=== PATIENT | female | born 1940 | race Caucasian/White ===

== ENCOUNTER 2019-09-17 09:04 | Inpatient (IN) | payer MEDICARE, MEDICAID ==
--- NOTE | 2019-09-17 11:10 | EDM.PDOC ---
ED HPI GENERAL MEDICAL PROBLEM - General Chief Complaint: Lower Extremity Injury/Pain Stated Complaint: Fall. R Hip Pain Time Seen by Provider: 09/17/19 09:20 Source of Information: Reports: Patient History Limitations: Reports: No Limitations - History of Present Illness INITIAL COMMENTS - FREE TEXT/NARRATIVE: Patient presents to ER with complaints of right hip and knee pain. Did fall at home yesterday, called 911 to home, assisted her up and patient refused transfer at that time. States at 7 pm last night started having pain in her right knee and now has not been able to tolerate it. She again called 911 this am. Patient left the prison AMA about a month ago. "they weren't doing anything for me and didn't get much more help than I get at home". She relates she can transfer from lift chair to w/c and to commode and her helps with the meals and emptying the commode. Today, unable to transfer at all. Denies chest pain, shortness of breath or abdominal pain. Did have injection to left knee on Saturday and relates that is feeling much better. Onset: Gradual Duration: Hour(s):, Getting Worse Location: Reports: Lower Extremity, Left Quality: Reports: Throbbing Severity: Severe Improves with: Reports: Rest Worsens with: Reports: Movement Associated Symptoms: Reports: No Other Symptoms Treatments ENVIRONMENTAL PROGRAM MANAGER: Reports: IV/IO, Other Medication(s) Other Treatments ENVIRONMENTAL PROGRAM MANAGER: fentanyl 50 mcg ivp, zofran 4mg ivp - Related Data Allergies Allergy/AdvReac Type Severity Reaction Status Date / Time allopurinol Allergy Muscle Verified 09/17/19 09:48 Weakness azithromycin [From Zithromax] Allergy Nausea Verified 09/17/19 09:48 ciprofloxacin [From Cipro] Allergy Headache Verified 09/17/19 09:48 doxycycline Allergy Shortness Verified 09/17/19 09:48 of Breath guaifenesin Allergy Itching Verified 09/17/19 09:48 metolazone Allergy Hives Verified 09/17/19 09:48 Penicillins Allergy Cannot Verified 09/17/19 09:48 Remember prednisone Allergy Hives Verified 09/17/19 09:48 solifenacin [From Vesicare] Allergy Rash Verified 09/17/19 09:48 spironolactone Allergy Tachycardia Verified 09/17/19 09:48 [From Aldactone] Sulfa (Sulfonamide Allergy Hives Verified 09/17/19 09:48 Antibiotics) tolterodine [From Detrol] Allergy Cannot Verified 09/17/19 09:48 Remember Home Meds: Home Meds Albuterol [Ventolin HFA] 1 puff .XX Q4H PRN 09/17/19 [History] Bumetanide 1 mg PO DAILY 09/17/19 [History] Cephalexin [Keflex] 500 mg PO TID 09/17/19 [History] Cyanocobalamin/Folic Acid [Vitamin D86-Jgkft Acid] 1 each PO DAILY 09/17/19 [ History] Past Medical History Cardiovascular History: Reports: Heart Failure, Hypertension Respiratory History: Reports: Asthma Musculoskeletal History: Reports: Arthritis, Other (See Below) Other Musculoskeletal History: chronic knee and hip pain Social & Family History - Tobacco Use Smoking Status *Q: Never Smoker Review of Systems - Review of Systems Review Of Systems: See Below Constitutional: Reports: Weakness. Denies: Chills, Fever Eyes: Reports: No Symptoms Ears: Denies: Dizziness Nose: Reports: No Symptoms Mouth/Throat: Reports: No Symptoms Respiratory: Denies: Shortness of Breath, Cough Cardiovascular: Denies: Chest Pain, Palpitations GI/Abdominal: Denies: Abdominal Pain, Nausea, Vomiting Genitourinary: Reports: No Symptoms Musculoskeletal: Reports: Leg Pain, Joint Pain Skin: Reports: Erythema (in legs) Neurological: Reports: Weakness ED EXAM, GENERAL - Physical Exam Exam: See Below Exam Limited By: No Limitations General Appearance: Alert, WD/WN, No Apparent Distress Ears: Normal External Exam, Normal TMs Nose: Normal Inspection, Normal Mucosa, No Blood Throat/Mouth: Normal Inspection, Normal Oropharynx Head: Normocephalic Neck: Normal Inspection, Supple, Non-Tender Respiratory/Chest: No Respiratory Distress, Lungs Clear, Normal Breath Sounds Cardiovascular: Regular Rate, Rhythm GI/Abdominal: Normal Bowel Sounds, Soft, Hernia (left upper abdomen) Extremities: Increased Warmth, Redness (right lower extremity; also has abrasion /avulsion to right great toe. edema 2-3+ noted. Redness noted to creases of legs) Neurological: Alert, Oriented Skin Exam: Warm, Dry Course - Vital Signs Last Recorded V/S: Last Vital Signs Temp 97.5 F 09/17/19 09:04 Pulse 96 09/17/19 09:04 Resp 20 09/17/19 09:04 BP 111/64 09/17/19 09:04 Pulse Ox 96 09/17/19 09:04 - Orders/Labs/Meds Orders: Active Orders 24 hr Category Date Time Status Hip Min 2V or 3V w Pelvis Rt [CR] Stat Exams 09/17/19 09:09 Taken Knee 1V or 2V Rt [CR] Stat Exams 09/17/19 09:09 Taken - Re-Assessments/Exams Free Text/Narrative Re-Assessment/Exam: 09/17/19 1000 Patient's xrays are negative. Did discuss possible injection to knee and discharge plan. Patient feels she could do this at home. Transferred with 2 to wheelchair, did not do well, minimal weight bearing. contacted about ability to care for her at home. He states he is no longer able to do this. Did not feel she should have checked out of the prison, does very little for herself. Refused therapy when at the home. Patient aware of of admission here with plan to transfer to [facility] for more care and strengthening. Patient is unhappy about this but does understand. Departure - Departure Time of Disposition: 11:07 Disposition: Admitted As Inpatient 66 Condition: Fair Clinical Impression: Failure to thrive Right knee pain Qualifiers: Chronicity: acute Qualified Code(s): M25.561 - Pain in right knee - Discharge Information *PRESCRIPTION DRUG MONITORING PROGRAM REVIEWED*: No *COPY OF PRESCRIPTION DRUG MONITORING REPORT IN PATIENT FAMILIA: No - Problem List & Annotations (1) Failure to thrive SNOMED Code(s): 05654654 Code(s): YGK4881 - Status: Acute Priority: High Current Visit: No (2) Right knee pain SNOMED Code(s): 89208859 Code(s): M25.561 - PAIN IN RIGHT KNEE Status: Acute Priority: High Current Visit: No Qualifiers: Chronicity: acute Qualified Code(s): M25.561 - Pain in right knee - Problem List Review Problem List Initiated/Reviewed/Updated: Yes - My Orders Last 24 Hours: My Active Orders 09/17/19 09:09 Hip Min 2V or 3V w Pelvis Rt [CR] Stat Knee 1V or 2V Rt [CR] Stat - Assessment/Plan Admission H&P: Please use this note as an admission H&P Last 24 Hours: My Active Orders 09/17/19 09:09 Hip Min 2V or 3V w Pelvis Rt [CR] Stat Knee 1V or 2V Rt [CR] Stat Assessment:: Failure to thrive/vulnerable adult Right Knee Pain Plan: Patient family admits unable to care for patient at home. Had just checked self out of the prison a month ago and has not been doing well at home. Will admit for physical therapy, social service consult for prison patient. Patient unable to transfer to wheelchair well this am which she states she can typically do on her own.
[2019-09-17] MEDS ORDERED: Ondansetron 4 MG Tab.DIS PO PRN (12:44)
[2019-09-17] MEDS ORDERED: Magnesium Hydroxide 400 MG/5 ML Susp 30 ML Cup PO PRN (12:44)
[2019-09-17] MEDS ORDERED: Sodium Chloride 0.9% 10 ML Syringe FLUSH PRN (12:44)
[2019-09-17] MEDS ORDERED: Ondansetron 4 MG/2 ML SDV IV PRN (12:44)
[2019-09-17] MEDS ORDERED: Albuterol 8 GM Inhaler INH PRN (12:44)
[2019-09-17] MEDS: Enoxaparin 40 MG/0.4 ML Syringe SUBCUT SCH (14:16)
[2019-09-17] MEDS: Cephalexin 500 MG Cap PO SCH ×2 (14:17→19:28)
[2019-09-17] MEDS: traMADol 50 MG Tab PO PRN (16:05)
[2019-09-17] MEDS ORDERED: fentaNYL 100 MCG/2 ML SDV IVPUSH PRN (16:46)
[2019-09-17] MEDS ORDERED: Menthol/Zinc Oxide Ointment 113 GM Tube TOP ONE (17:31)
[2019-09-17] MEDS ORDERED: Menthol/Zinc Oxide Ointment 113 GM Tube TOP PRN (17:48)
[2019-09-17] MEDS: Oxyquinoline/Emollient 0.3% Oint 1 OZ Canister TOP PRN (19:32)
[2019-09-18] MEDS: Vitamin B Complex Cap PO SCH (08:42)
[2019-09-18] MEDS: Cephalexin 500 MG Cap PO SCH ×3 (08:42→20:27)
[2019-09-18] MEDS: Bumetanide 1 MG Tab PO SCH (08:42)
[2019-09-18] MEDS: Enoxaparin 40 MG/0.4 ML Syringe SUBCUT SCH (13:26)
[2019-09-18] MEDS: traMADol 50 MG Tab PO PRN ×2 (14:14→20:50)
--- NOTE | 2019-09-18 19:28 | PCM.PN ---
- General Info Date of Service: 09/18/19 Admission Dx/Problem (Free Text): Failure to Thrive Weakness Right Knee Pain Functional Status: Reports: Pain Controlled, Tolerating Diet. Denies: Ambulating - Review of Systems General: Reports: Weakness, Fatigue HEENT: Reports: No Symptoms Pulmonary: Denies: Shortness of Breath, Cough Cardiovascular: Reports: Edema. Denies: Chest Pain, Lightheadedness Gastrointestinal: Denies: Abdominal Pain, Nausea, Vomiting Genitourinary: Reports: Incontinence Musculoskeletal: Reports: Joint Pain Skin: Reports: Other ("itchy legs") Neurological: Reports: Weakness - Patient Data Vitals - Most Recent: Last Vital Signs Temp 97.6 F 09/18/19 16:00 Pulse 87 09/18/19 16:00 Resp 18 09/18/19 16:00 BP 107/69 09/18/19 16:00 Pulse Ox 91 L 09/18/19 16:00 Weight - Most Recent: 277 lb Lab Results Last 24 Hours: Laboratory Results - last 24 hr 09/17/19 Range/Units 16:00 Urine Color Yellow (YELLOW) Urine Appearance Clear (CLEAR) Urine pH 5.0 (4.5-8.0) Ur Specific [place] 1.010 (1.003-1.020) Urine Protein Negative (NEGATIVE) mg/dL Urine Glucose (UA) Negative (NEGATIVE) mg/dL Urine Ketones Negative (NEGATIVE) mg/dL Urine Occult Blood Negative (NEGATIVE) Urine Nitrite Negative (NEGATIVE) Urine Bilirubin Negative (NEGATIVE) Urine Urobilinogen 1.0 (0.2-1.0) EU/dL Ur Leukocyte Esterase Small H (NEGATIVE) Urine RBC Not seen (0-5) /HPF Urine WBC 10-20 H (0-5) /HPF Ur Epithelial Cells Few H (NOT SEEN) /HPF Urine Bacteria Occasional H (NOT SEEN) /HPF Med Orders - Current: Current Medications Albuterol (Ventolin Hfa) 0 gm INH Q4H PRN PRN Reason: Respiratory Depression Bumetanide (Bumex) 1 mg PO DAILY [facility] Last Admin: 09/18/19 08:42 Dose: 1 mg Calamine/Phenol (Calmoseptine) 1 gm TOP QID PRN PRN Reason: Wound Care Cephalexin (Keflex) 500 mg PO TID [facility] Last Admin: 09/18/19 13:28 Dose: 500 mg Enoxaparin Sodium (Lovenox) 40 mg SUBCUT Q24H [facility] Last Admin: 09/18/19 13:26 Dose: 40 mg Fentanyl (Sublimaze) 25 mcg IVPUSH Q4H PRN PRN Reason: Pain Last Admin: 09/18/19 13:26 Dose: 25 mcg Magnesium Hydroxide (Milk Of Magnesia) 30 ml PO Q12H PRN PRN Reason: Constipation Ondansetron HCl (Zofran Odt) 4 mg PO Q4H PRN PRN Reason: nausea, able to take PO Ondansetron HCl (Zofran) 4 mg IV Q4H PRN PRN Reason: Nausea/Vomiting Oxyquinoline Sulfate (Bag [place] Oint) 1 oz TOP ASDIRECTED PRN PRN Reason: Wound Care Last Admin: 09/17/19 19:32 Dose: 1 applic Sodium Chloride (Saline Flush) 10 ml FLUSH ASDIRECTED PRN PRN Reason: Keep Vein Open Tramadol HCl (Ultram) 50 mg PO Q6H PRN PRN Reason: Pain Last Admin: 09/18/19 14:14 Dose: 50 mg Vitamin B Complex (Vitamin B Complex) 1 each PO DAILY [facility] Last Admin: 09/18/19 08:42 Dose: 1 each Discontinued Medications Calamine/Phenol (Calmoseptine) Confirm Administered Dose 113 gm TOP .STK-MED ONE Stop: 09/17/19 17:32 Last Admin: 09/17/19 17:55 Dose: Not Given - Exam General: Alert, Oriented HEENT: Mucous Membr. Moist/[place] Neck: Supple Lungs: Clear to Auscultation, Normal Respiratory Effort Cardiovascular: Regular Rate, Regular Rhythm GI/Abdominal Exam: Normal Bowel Sounds, Soft, Non-Tender Extremities: Limited Range of Motion, Other (does not weight bear much at all) Skin: Other (Patient has redness, moisture and drainage to all folds of legs.) Neurological: No New Focal Deficit - Problem List & Annotations (1) Failure to thrive SNOMED Code(s): 15013737 Code(s): [id number] - Status: Acute Priority: High Current Visit: No (2) Right knee pain SNOMED Code(s): 35222843 Code(s): M25.561 - PAIN IN RIGHT KNEE Status: Acute Priority: High Current Visit: No Qualifiers: Chronicity: acute Qualified Code(s): M25.561 - Pain in right knee - Problem List Review Problem List Initiated/Reviewed/Updated: Yes - My Orders Last 24 Hours: My Active Orders 09/18/19 08:00 Bumetanide [Bumex] 1 mg PO DAILY Vitamin B Complex 1 each PO DAILY - Assessment Assessment:: Weakness Failure to Thrive Right Knee Pain - Plan Plan:: Patient resting comfortably in bed. Does not transfer well, nursing using the ez-stand. She continues to complain of right knee pain, "is sore". She denies shortness of breath, chest pain, or abdominal pain. Has been incontinent of urine. Appetite is good. Patient will receive PT due to inability to care for self. Requires multiple staff members to transfer/reposition. Will plan for custodial placement when able.
[2019-09-18] MEDS: Oxyquinoline/Emollient 0.3% Oint 1 OZ Canister TOP PRN (20:46)
[2019-09-19] MEDS: Albuterol/Ipratropium 3.0-0.5 MG/3 ML Neb Soln NEB PRN ×2 (01:04→20:00)
[2019-09-19] MEDS: traMADol 50 MG Tab PO PRN ×2 (08:14→17:22)
[2019-09-19] MEDS: Bumetanide 1 MG Tab PO SCH (08:14)
[2019-09-19] MEDS: Cephalexin 500 MG Cap PO SCH ×3 (08:14→19:47)
[2019-09-19] MEDS: Vitamin B Complex Cap PO SCH (08:15)
[2019-09-19] MEDS: Enoxaparin 40 MG/0.4 ML Syringe SUBCUT SCH (12:44)
--- NOTE | 2019-09-19 15:35 | PCM.PN ---
- General Info Date of Service: 09/19/19 Functional Status: Reports: Tolerating Diet - Review of Systems General: Reports: Weakness (general) HEENT: Reports: No Symptoms Pulmonary: Reports: No Symptoms Cardiovascular: Reports: No Symptoms Gastrointestinal: Reports: No Symptoms Genitourinary: Reports: No Symptoms Musculoskeletal: Reports: Leg Pain (RLE pain chronic for years unchanged) Skin: Reports: Other (coccyx wound, right greater toe wound ) Neurological: Reports: No Symptoms Psychiatric: Reports: Depression - Patient Data Vitals - Most Recent: Last Vital Signs Temp 98.9 F 09/19/19 00:00 Pulse 88 09/19/19 00:00 Resp 18 09/19/19 00:00 BP 114/51 L 09/19/19 00:00 Pulse Ox 95 09/19/19 00:00 Weight - Most Recent: 277 lb Lab Results Last 24 Hours: Laboratory Results - last 24 hr 09/17/19 09/19/19 09/19/19 Range/Units 16:00 07:20 07:20 WBC 5.6 (5.0-10.0) 10^3/uL RBC 3.61 L (4.00-5.50) 10^6/uL Hgb 11.1 L (12.0-16.0) g/dL Hct 35.4 L (37.0-47.0) % MCV 98.1 H (82.0-94.0) fL MCH 30.7 (27.0-32.0) pg MCHC 31.4 L (33.0-38.0) g/dL RDW Coeff of Pratik 14.5 (11.0-15.0) % Plt Count 215 (150-400) 10^3/uL Neut % (Auto) 52.3 (35-85) % Lymph % (Auto) 29.1 (10-55) % [place] % (Auto) 10.6 (0-16) % Eos % (Auto) 7.6 H (0-5) % Baso % (Auto) 0.4 (0-3) % Neut # (Auto) 2.95 (1.80-7.00) 10^3/uL Lymph # (Auto) 1.64 (1.00-4.80) 10^3/uL [place] # (Auto) 0.60 (0.00-0.80) 10^3/uL Eos # (Auto) 0.43 (0.00-0.45) 10^3/uL Baso # (Auto) 0.02 10^3/uL Sodium 140 (136-145) mEq/L Potassium 3.8 (3.5-5.0) mEq/L Chloride 105 (98-106) mEq/L Carbon Dioxide 28 (21-32) mmol/L BUN 21 H (7-18) mg/dL Creatinine 1.0 (0.6-1.0) mg/dL Est Cr Clr Drug Dosing 41.05 mL/min Estimated GFR (MDRD) 53 L (>=60) mL/min Glucose 79 (75-99) mg/dL Calcium 8.0 L (8.4-10.1) mg/dL Urine Color Yellow (YELLOW) Urine Appearance Clear (CLEAR) Urine pH 5.0 (4.5-8.0) Ur Specific [place] 1.010 (1.003-1.020) Urine Protein Negative (NEGATIVE) mg/dL Urine Glucose (UA) Negative (NEGATIVE) mg/dL Urine Ketones Negative (NEGATIVE) mg/dL Urine Occult Blood Negative (NEGATIVE) Urine Nitrite Negative (NEGATIVE) Urine Bilirubin Negative (NEGATIVE) Urine Urobilinogen 1.0 (0.2-1.0) EU/dL Ur Leukocyte Esterase Small H (NEGATIVE) Urine RBC Not seen (0-5) /HPF Urine WBC 10-20 H (0-5) /HPF Ur Epithelial Cells Few H (NOT SEEN) /HPF Urine Bacteria Occasional H (NOT SEEN) /HPF Med Orders - Current: Current Medications Albuterol (Ventolin Hfa) 0 gm INH Q4H PRN PRN Reason: Respiratory Depression Albuterol/Ipratropium (Duoneb 3.0-0.5 Mg/3 Ml) 3 ml NEB TIDRT PRN PRN Reason: Dyspnea Last Admin: 09/19/19 01:04 Dose: 3 ml Bumetanide (Bumex) 1 mg PO DAILY [facility] Last Admin: 09/19/19 08:14 Dose: 1 mg Calamine/Phenol (Calmoseptine) 1 gm TOP QID PRN PRN Reason: Wound Care Cephalexin (Keflex) 500 mg PO TID [facility] Last Admin: 09/19/19 13:44 Dose: 500 mg Enoxaparin Sodium (Lovenox) 40 mg SUBCUT Q24H [facility] Last Admin: 09/19/19 12:44 Dose: 40 mg Fentanyl (Sublimaze) 25 mcg IVPUSH Q4H PRN PRN Reason: Pain Last Admin: 09/18/19 13:26 Dose: 25 mcg Magnesium Hydroxide (Milk Of Magnesia) 30 ml PO Q12H PRN PRN Reason: Constipation Ondansetron HCl (Zofran Odt) 4 mg PO Q4H PRN PRN Reason: nausea, able to take PO Ondansetron HCl (Zofran) 4 mg IV Q4H PRN PRN Reason: Nausea/Vomiting Oxyquinoline Sulfate (Bag [place] Oint) 1 oz TOP ASDIRECTED PRN PRN Reason: Wound Care Last Admin: 09/18/19 20:46 Dose: 1 applic Sodium Chloride (Saline Flush) 10 ml FLUSH ASDIRECTED PRN PRN Reason: Keep Vein Open Tramadol HCl (Ultram) 50 mg PO Q6H PRN PRN Reason: Pain Last Admin: 09/19/19 08:14 Dose: 50 mg Vitamin B Complex (Vitamin B Complex) 1 each PO DAILY [facility] Last Admin: 09/19/19 08:15 Dose: 1 each Discontinued Medications Calamine/Phenol (Calmoseptine) Confirm Administered Dose 113 gm TOP .STDropost.it-MED ONE Stop: 09/17/19 17:32 Last Admin: 09/17/19 17:55 Dose: Not Given - Exam General: Alert, Oriented, Cooperative, No Acute Distress Lungs: Clear to Auscultation, Normal Respiratory Effort Cardiovascular: Regular Rate, Regular Rhythm GI/Abdominal Exam: Tender (diffuse superficially, per patient due to lovenox injections), Other (obese) (Female) Exam: Deferred Back Exam: Other (eccymosis) Extremities: Other (tenderness RLE chronic. wound right greater toe.) Peripheral Pulses: 2+: Radial (L), Radial (R), Posterior Tibial (L), Posterior Tibial (R) Skin: Warm, Dry, Ecchymosis (back) Psy/Mental Status: Alert, Depressed, Other (failure to thrive. ) - Problem List Review Problem List Initiated/Reviewed/Updated: Yes - My Orders Last 24 Hours: My Active Orders 09/19/19 00:27 RT Aerosol Therapy [RC] ASDIRECTED Albuterol/Ipratropium [DuoNeb 3.0-0.5 MG/3 ML] 3 ml NEB TIDRT PRN 09/20/19 05:00 BASIC METABOLIC PANEL,BMP [CHEM] DAILY CBC WITH AUTO DIFF [HEME] DAILY 09/21/19 05:00 BASIC METABOLIC PANEL,BMP [CHEM] DAILY CBC WITH AUTO DIFF [HEME] DAILY - Assessment Assessment:: Weakness Failure to Thrive Right Knee Pain - Plan Plan:: Patient resting comfortably in bed. Does not transfer well, nursing using the ez-stand. She continues to complain of right knee pain, "is sore". She denies shortness of breath, chest pain, or abdominal pain. Has been incontinent of urine. Appetite is good. Patient will receive PT due to inability to care for self. Requires multiple staff members to transfer/reposition. Will plan for [facility] placement when able. 09/19/19 0800 Patient is obese female that is not able to transfer on her own. She reports multiple person assist for movement. She has continued chronic RLE pain for years. She reports she generally is sore all over, but reports that is not new. She reports abdominal murphy just from lovenox injections. Bun yesterday 27, CR 1.1. Today BUN is 21, CR 1.0. Will continue admit with the plan to get PT and placement to [facility] or other facility to care for her. She can not go home as it requires multiple people to care for ADLs and mobility to transfer. Patient has no thrive due to lack of mobility and transfer ability.
[2019-09-20] MEDS: Albuterol/Ipratropium 3.0-0.5 MG/3 ML Neb Soln NEB PRN ×3 (05:13→23:16)
[2019-09-20] MEDS: Bumetanide 1 MG Tab PO SCH (08:18)
[2019-09-20] MEDS: traMADol 50 MG Tab PO PRN (08:18)
[2019-09-20] MEDS: Cephalexin 500 MG Cap PO SCH ×3 (08:19→19:39)
[2019-09-20] MEDS: Vitamin B Complex Cap PO SCH (08:21)
[2019-09-20] MEDS: Polyethylene Glycol 3350 Powder 17 GM Packet PO SCH (08:51)
[2019-09-20] MEDS: Enoxaparin 40 MG/0.4 ML Syringe SUBCUT SCH (12:30)
--- NOTE | 2019-09-20 12:47 | PCM.PN ---
- General Info Date of Service: 09/20/19 Functional Status: Reports: Pain Controlled (generalixed body pain) - Review of Systems General: Reports: Weakness (general) HEENT: Reports: No Symptoms Pulmonary: Reports: No Symptoms. Denies: Shortness of Breath Cardiovascular: Reports: No Symptoms. Denies: Chest Pain, Edema Gastrointestinal: Reports: No Symptoms. Denies: Abdominal Pain, Nausea, Vomiting Genitourinary: Reports: Incontinence Musculoskeletal: Reports: Other (RLE pain chronic. LUE pain, swelling bruising at lab site AC) Skin: Reports: Bruising (LEft Ac from Lbab per patient) Neurological: Reports: No Symptoms Psychiatric: Reports: No Symptoms - Patient Data Vitals - Most Recent: Last Vital Signs Temp 98.0 F 09/19/19 23:56 Pulse 70 09/19/19 23:56 Resp 18 09/19/19 23:56 BP 118/58 L 09/19/19 23:56 Pulse Ox 95 09/19/19 23:56 Weight - Most Recent: 277 lb Lab Results Last 24 Hours: Laboratory Results - last 24 hr 09/20/19 09/20/19 Range/Units 07:05 07:05 WBC 5.7 (5.0-10.0) 10^3/uL RBC 3.59 L (4.00-5.50) 10^6/uL Hgb 10.9 L (12.0-16.0) g/dL Hct 34.8 L (37.0-47.0) % MCV 96.9 H (82.0-94.0) fL MCH 30.4 (27.0-32.0) pg MCHC 31.3 L (33.0-38.0) g/dL RDW Coeff of Pratik 14.3 (11.0-15.0) % Plt Count 212 (150-400) 10^3/uL Neut % (Auto) 58.8 (35-85) % Lymph % (Auto) 23.6 (10-55) % [place] % (Auto) 11.9 (0-16) % Eos % (Auto) 5.4 H (0-5) % Baso % (Auto) 0.3 (0-3) % Neut # (Auto) 3.37 (1.80-7.00) 10^3/uL Lymph # (Auto) 1.35 (1.00-4.80) 10^3/uL [place] # (Auto) 0.68 (0.00-0.80) 10^3/uL Eos # (Auto) 0.31 (0.00-0.45) 10^3/uL Baso # (Auto) 0.02 10^3/uL Sodium 141 (136-145) mEq/L Potassium 3.6 (3.5-5.0) mEq/L Chloride 105 (98-106) mEq/L Carbon Dioxide 29 (21-32) mmol/L BUN 19 H (7-18) mg/dL Creatinine 1.1 H (0.6-1.0) mg/dL Est Cr Clr Drug Dosing 37.32 mL/min Estimated GFR (MDRD) 48 L (>=60) mL/min Glucose 101 H D (75-99) mg/dL Calcium 8.1 L (8.4-10.1) mg/dL Med Orders - Current: Current Medications Albuterol (Ventolin Hfa) 0 gm INH Q4H PRN PRN Reason: Respiratory Depression Albuterol/Ipratropium (Duoneb 3.0-0.5 Mg/3 Ml) 3 ml NEB TIDRT PRN PRN Reason: Dyspnea Last Admin: 09/20/19 05:13 Dose: 3 ml Bumetanide (Bumex) 1 mg PO DAILY [facility] Last Admin: 09/20/19 08:18 Dose: 1 mg Calamine/Phenol (Calmoseptine) 1 gm TOP QID PRN PRN Reason: Wound Care Cephalexin (Keflex) 500 mg PO TID [facility] Last Admin: 09/20/19 08:19 Dose: 500 mg Enoxaparin Sodium (Lovenox) 40 mg SUBCUT Q24H [facility] Last Admin: 09/20/19 12:30 Dose: 40 mg Fentanyl (Sublimaze) 25 mcg IVPUSH Q4H PRN PRN Reason: Pain Last Admin: 09/18/19 13:26 Dose: 25 mcg Magnesium Hydroxide (Milk Of Magnesia) 30 ml PO Q12H PRN PRN Reason: Constipation Ondansetron HCl (Zofran Odt) 4 mg PO Q4H PRN PRN Reason: nausea, able to take PO Ondansetron HCl (Zofran) 4 mg IV Q4H PRN PRN Reason: Nausea/Vomiting Oxyquinoline Sulfate (Bag [place] Oint) 1 oz TOP ASDIRECTED PRN PRN Reason: Wound Care Last Admin: 09/18/19 20:46 Dose: 1 applic Polyethylene Glycol (Miralax) 17 gm PO DAILY [facility] Last Admin: 09/20/19 08:51 Dose: 17 gm Sodium Chloride (Saline Flush) 10 ml FLUSH ASDIRECTED PRN PRN Reason: Keep Vein Open Tramadol HCl (Ultram) 50 mg PO Q6H PRN PRN Reason: Pain Last Admin: 09/20/19 08:18 Dose: 50 mg Vitamin B Complex (Vitamin B Complex) 1 each PO DAILY [facility] Last Admin: 09/20/19 08:21 Dose: Not Given Discontinued Medications Calamine/Phenol (Calmoseptine) Confirm Administered Dose 113 gm TOP .STK-MED ONE Stop: 09/17/19 17:32 Last Admin: 09/17/19 17:55 Dose: Not Given - Exam General: Alert, Oriented, Other (generally weak.) Lungs: Clear to Auscultation, Normal Respiratory Effort Cardiovascular: Regular Rate, Regular Rhythm Back Exam: Other (eccyhmosis) Extremities: Normal Capillary Refill, Arm Pain (Left AC lab site. no drainage, no heat, no evidence of infection.), Other (RLE pain chronic) Peripheral Pulses: 2+: Radial (L), Radial (R), Posterior Tibial (L), Posterior Tibial (R), Dorsalis Pedis (L), Dorsalis Pedis (R) Skin: Warm, Dry, Ecchymosis (back. Left AC) Neurological: No New Focal Deficit Psy/Mental Status: Alert, Normal Affect, Normal Mood - Problem List Review Problem List Initiated/Reviewed/Updated: Yes - My Orders Last 24 Hours: My Active Orders 09/20/19 08:45 Polyethylene Glycol 3350 [MiraLAX] 17 gm PO DAILY 09/21/19 05:00 BASIC METABOLIC PANEL,BMP [CHEM] DAILY CBC WITH AUTO DIFF [HEME] DAILY - Assessment Assessment:: Weakness Failure to Thrive Right Knee Pain - Plan Plan:: Patient resting comfortably in bed. Does not transfer well, nursing using the ez-stand. She continues to complain of right knee pain, "is sore". She denies shortness of breath, chest pain, or abdominal pain. Has been incontinent of urine. Appetite is good. Patient will receive PT due to inability to care for self. Requires multiple staff members to transfer/reposition. Will plan for [place] [facility] placement when able. 09/19/19 0800 Patient is obese female that is not able to transfer on her own. She reports multiple person assist for movement. She has continued chronic RLE pain for years. She reports she generally is sore all over, but reports that is not new. She reports abdominal murphy just from lovenox injections. Bun yesterday 27, CR 1.1. Today BUN is 21, CR 1.0. Will continue admit with the plan to get PT and placement to [place] [facility] or other facility to care for her. She can not go home as it requires multiple people to care for ADLs and mobility to transfer. Patient has no thrive due to lack of mobility and transfer ability. 09/20/19 1100am Patient is obese female that is not able to transfer on her own. She reports multiple person assist for movement. She has continued chronic RLE pain for years. She reports she generally is sore all over, but reports that is not new. Patient does report Left AC pain, tenderness, swelling, bruising at AC she report from lab draws. Labs today are BUN 19, CR 1.1. Will continue admit with the plan to get PT and placement to [place] [facility] or other facility to care for her. She can not go home as it requires multiple people to care for ADLs and mobility to transfer. Patient has no thrive due to lack of mobility and transfer ability.
[2019-09-21] MEDS: traMADol 50 MG Tab PO PRN ×2 (02:09→10:39)
[2019-09-21] MEDS: Cephalexin 500 MG Cap PO SCH ×3 (07:47→20:00)
[2019-09-21] MEDS: Vitamin B Complex Cap PO SCH (07:47)
[2019-09-21] MEDS: Bumetanide 1 MG Tab PO SCH (07:47)
[2019-09-21] MEDS: Polyethylene Glycol 3350 Powder 17 GM Packet PO SCH (07:48)
[2019-09-21] MEDS: Albuterol/Ipratropium 3.0-0.5 MG/3 ML Neb Soln NEB PRN ×2 (08:40→23:59)
[2019-09-21] MEDS: Enoxaparin 40 MG/0.4 ML Syringe SUBCUT SCH (13:43)
[2019-09-21] MEDS ORDERED: Tuberculin, PPD 5 Units/0.1 ML 1 ML MDV IDERM ONE (14:03)
--- NOTE | 2019-09-21 16:51 | PCM.PN ---
- General Info Date of Service: 09/21/19 Admission Dx/Problem (Free Text): Failure to Thrive Weakness Right Knee Pain Functional Status: Reports: Pain Controlled (with use of Tramadol), Tolerating Diet. Denies: Ambulating - Review of Systems General: Reports: Weakness HEENT: Reports: No Symptoms Pulmonary: Denies: Shortness of Breath, Cough Cardiovascular: Reports: Edema. Denies: Chest Pain, Lightheadedness Gastrointestinal: Denies: Abdominal Pain, Nausea, Vomiting Genitourinary: Reports: Incontinence Musculoskeletal: Reports: Joint Pain Skin: Reports: Rash Neurological: Reports: No Symptoms - Patient Data Vitals - Most Recent: Last Vital Signs Temp 98.3 F 09/21/19 16:00 Pulse 78 09/21/19 16:00 Resp 20 09/21/19 16:00 BP 142/41 H 09/21/19 16:00 Pulse Ox 95 09/21/19 16:00 Weight - Most Recent: 277 lb Lab Results Last 24 Hours: Laboratory Results - last 24 hr 09/21/19 09/21/19 Range/Units 07:15 07:15 WBC 5.3 (5.0-10.0) 10^3/uL RBC 3.65 L (4.00-5.50) 10^6/uL Hgb 11.0 L (12.0-16.0) g/dL Hct 35.0 L (37.0-47.0) % MCV 95.9 H (82.0-94.0) fL MCH 30.1 (27.0-32.0) pg MCHC 31.4 L (33.0-38.0) g/dL RDW Coeff of Pratik 14.3 (11.0-15.0) % Plt Count 225 (150-400) 10^3/uL Neut % (Auto) 57.2 (35-85) % Lymph % (Auto) 25.3 (10-55) % [place] % (Auto) 12.2 (0-16) % Eos % (Auto) 5.1 H (0-5) % Baso % (Auto) 0.2 (0-3) % Neut # (Auto) 3.06 (1.80-7.00) 10^3/uL Lymph # (Auto) 1.35 (1.00-4.80) 10^3/uL [place] # (Auto) 0.65 (0.00-0.80) 10^3/uL Eos # (Auto) 0.27 (0.00-0.45) 10^3/uL Baso # (Auto) 0.01 10^3/uL Sodium 141 (136-145) mEq/L Potassium 3.6 (3.5-5.0) mEq/L Chloride 105 (98-106) mEq/L Carbon Dioxide 29 (21-32) mmol/L BUN 16 (7-18) mg/dL Creatinine 1.1 H (0.6-1.0) mg/dL Est Cr Clr Drug Dosing 37.32 mL/min Estimated GFR (MDRD) 48 L (>=60) mL/min Glucose 96 (75-99) mg/dL Calcium 8.1 L (8.4-10.1) mg/dL Med Orders - Current: Current Medications Albuterol (Ventolin Hfa) 0 gm INH Q4H PRN PRN Reason: Respiratory Depression Albuterol/Ipratropium (Duoneb 3.0-0.5 Mg/3 Ml) 3 ml NEB TIDRT PRN PRN Reason: Dyspnea Last Admin: 09/21/19 08:40 Dose: 3 ml Bumetanide (Bumex) 1 mg PO DAILY [facility] Last Admin: 09/21/19 07:47 Dose: 1 mg Calamine/Phenol (Calmoseptine) 1 gm TOP QID PRN PRN Reason: Wound Care Cephalexin (Keflex) 500 mg PO TID [facility] Last Admin: 09/21/19 13:43 Dose: 500 mg Enoxaparin Sodium (Lovenox) 40 mg SUBCUT Q24H [facility] Last Admin: 09/21/19 13:43 Dose: 40 mg Fentanyl (Sublimaze) 25 mcg IVPUSH Q4H PRN PRN Reason: Pain Last Admin: 09/18/19 13:26 Dose: 25 mcg Magnesium Hydroxide (Milk Of Magnesia) 30 ml PO Q12H PRN PRN Reason: Constipation Ondansetron HCl (Zofran Odt) 4 mg PO Q4H PRN PRN Reason: nausea, able to take PO Ondansetron HCl (Zofran) 4 mg IV Q4H PRN PRN Reason: Nausea/Vomiting Oxyquinoline Sulfate (Bag [place] Oint) 1 oz TOP ASDIRECTED PRN PRN Reason: Wound Care Last Admin: 09/18/19 20:46 Dose: 1 applic Polyethylene Glycol (Miralax) 17 gm PO DAILY [facility] Last Admin: 09/21/19 07:48 Dose: 17 gm Sodium Chloride (Saline Flush) 10 ml FLUSH ASDIRECTED PRN PRN Reason: Keep Vein Open Tramadol HCl (Ultram) 50 mg PO Q6H PRN PRN Reason: Pain Last Admin: 09/21/19 10:39 Dose: 50 mg Vitamin B Complex (Vitamin B Complex) 1 each PO DAILY [facility] Last Admin: 09/21/19 07:47 Dose: 1 each Discontinued Medications Calamine/Phenol (Calmoseptine) Confirm Administered Dose 113 gm TOP .STK-MED ONE Stop: 09/17/19 17:32 Last Admin: 09/17/19 17:55 Dose: Not Given Tuberculin PPD (Aplisol) 5 unit IDERM ONETIME ONE Stop: 09/21/19 14:04 Last Admin: 09/21/19 15:44 Dose: 5 unit - Exam General: Alert, Oriented HEENT: Mucous Membr. Moist/[place] Neck: Supple Lungs: Clear to Auscultation, Normal Respiratory Effort Cardiovascular: Regular Rate, Regular Rhythm, Murmurs GI/Abdominal Exam: Normal Bowel Sounds, Soft, Non-Tender Extremities: Pedal Edema (2+) Skin: Other (redness noted to leg creases, moist. Venous stasis noted to legs. ) Neurological: No New Focal Deficit - Problem List & Annotations (1) Failure to thrive SNOMED Code(s): 91741763 Code(s): IXT0657 - Status: Acute Priority: High Current Visit: Yes (2) Right knee pain SNOMED Code(s): 70492220 Code(s): M25.561 - PAIN IN RIGHT KNEE Status: Acute Priority: High Current Visit: Yes Qualifiers: Chronicity: acute Qualified Code(s): M25.561 - Pain in right knee - Problem List Review Problem List Initiated/Reviewed/Updated: Yes - Assessment Assessment:: Weakness Failure to Thrive Right Knee Pain - Plan Plan:: Patient resting comfortably in bed. Does not transfer well, nursing using the ez-stand. She continues to complain of right knee pain, "is sore". She denies shortness of breath, chest pain, or abdominal pain. Has been incontinent of urine. Appetite is good. Patient will receive PT due to inability to care for self. Requires multiple staff members to transfer/reposition. Will plan for intermediate placement when able. 09/19/19 0800 Patient is obese female that is not able to transfer on her own. She reports multiple person assist for movement. She has continued chronic RLE pain for years. She reports she generally is sore all over, but reports that is not new. She reports abdominal murphy just from lovenox injections. Bun yesterday 27, CR 1.1. Today BUN is 21, CR 1.0. Will continue admit with the plan to get PT and placement to intermediate or other facility to care for her. She can not go home as it requires multiple people to care for ADLs and mobility to transfer. Patient has no thrive due to lack of mobility and transfer ability. 09/20/19 1100am Patient is obese female that is not able to transfer on her own. She reports multiple person assist for movement. She has continued chronic RLE pain for years. She reports she generally is sore all over, but reports that is not new. Patient does report Left AC pain, tenderness, swelling, bruising at AC she report from lab draws. Labs today are BUN 19, CR 1.1. Will continue admit with the plan to get PT and placement to intermediate or other facility to care for her. She can not go home as it requires multiple people to care for ADLs and mobility to transfer. Patient has no thrive due to lack of mobility and transfer ability. 09-21-2019 Patient stable. Continues to complain of joint pain, covered by tramadol. Remains non weightbearing, requiring ez-stand and multiple staff members for help. Labs repeated this weekend were stable. WBC today 5.3, hemoglobin 11, creatinine 1.1. Continue with PT. director of rehabilitative services awaiting screening approval for intermediate. Will give cortisone injection to right knee prior to discharge.
[2019-09-22] MEDS: traMADol 50 MG Tab PO PRN (03:28)
[2019-09-22] MEDS: Polyethylene Glycol 3350 Powder 17 GM Packet PO SCH (07:27)
[2019-09-22] MEDS: Bumetanide 1 MG Tab PO SCH (07:27)
[2019-09-22] MEDS: Cephalexin 500 MG Cap PO SCH (07:27)
[2019-09-22] MEDS: Vitamin B Complex Cap PO SCH (07:27)
[2019-09-22] MEDS: Albuterol/Ipratropium 3.0-0.5 MG/3 ML Neb Soln NEB PRN (07:28)
--- NOTE | 2019-09-22 14:56 | PCM.DCSUM1 ---
Discharge Summary - Hospital Course Free Text/Narrative:: Patient presented to ER with complaints of right knee pain s/p fall. She had fallen the day prior, had called 911 and had assistance getting up. Thought she was doing better but couldn't transfer and was having more knee pain so again called 911. Had been in to see Dr. Lopes earlier in the week and had her left knee injected, does feel that has helped the pain. She typically is only able to transfer from chair to commode to w/c. Now not able to bear much weight. She had redness between leg folds, abdominal folds. Open area to buttocks. Lung sounds clear. Patient admitted as vulnerable adult, able to not care for her. Had recently been at [facility] bed and checked self out AMA. 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 Will start physical therapy, consult with health care social worker for [facility] admission. Diagnosis: Stroke: No Modified Sarah Scale: No Symptoms at All Modified Sarah Scale Score: 0 - Discharge Data Discharge Date: 09/22/19 Discharge Disposition: DC/Tfer to [facility] Condition: Good - Referral to Home Health Primary Care Physician: Daniel Lopes MD - Discharge Diagnosis/Problem(s) (1) Failure to thrive SNOMED Code(s): 18849718 ICD Code: [id number] - Status: Acute Priority: High (2) Right knee pain SNOMED Code(s): 59638821 ICD Code: M25.561 - PAIN IN RIGHT KNEE Status: Acute Priority: High Qualifiers: Chronicity: acute Qualified Code(s): M25.561 - Pain in right knee - Patient Summary/Data Complications: none Consults: Consultations 09/17/19 12:44 PT Evaluation and Treatment [CONS] Routine Hospital Course: Patient continues to require much assistance for any cares. Not yet bearing any weight, requiring ez-stand for transfers. Has been incontinent of urine. Is able to feed self. Still has redness to leg folds and groin. Have been using calmoseptine to folds. Tolerating pain with Tramadol. Has had intermittent wheezing at times, using nebulizer treatments. Will add pulmicort for better control. Patient is unaware unable to care for self. program services assistant met with patient and , transfer to [facility] today. Continue physical therapy. Was given steroid injection to right knee at clinic by Dr. Lopes prior to transfer. - Patient Instructions Diet: Usual Diet as Tolerated Activity: As Tolerated - Discharge Plan *PRESCRIPTION DRUG MONITORING PROGRAM REVIEWED*: No *COPY OF PRESCRIPTION DRUG MONITORING REPORT IN PATIENT FAMILIA: No Prescriptions/Med Rec: Menthol/Zinc Oxide [Calmoseptine] 1 gm TOP QID PRN #1 tube PRN Reason: Wound Care Oxyquinoline/Emollient [Bag [place] Oint] 1 oz TOP ASDIRECTED PRN #1 canister PRN Reason: Wound Care Polyethylene Glycol 3350 [MiraLAX] 17 gm PO DAILY #30 packet traMADol [Ultram] 50 mg PO Q6H PRN #60 tablet PRN Reason: Pain Home Medications: Home Meds Albuterol [Ventolin HFA] 1 puff .XX Q4H PRN 09/17/19 [History] Albuterol/Ipratropium [DuoNeb 3.0-0.5 MG/3 ML] 1 ampule INH TID 09/17/19 [ History] Aspirin 325 mg PO DAILY 09/17/19 [History] Budesonide [Pulmicort] 1 ampule INH BID 09/17/19 [History] Bumetanide 1 mg PO DAILY 09/17/19 [History] Cephalexin [Keflex] 500 mg PO TID 09/17/19 [History] Cyanocobalamin/Folic Acid [Vitamin D47-Gjzrm Acid] 1 each PO DAILY 09/17/19 [ History] Polyethylene Glycol 3350 [MiraLAX] 17 gm PO DAILY PRN 09/17/19 [History] Potassium 99 mg PO DAILY 09/17/19 [History] Vitamin E 1,000 unit PO DAILY 09/17/19 [History] Menthol/Zinc Oxide [Calmoseptine] 1 gm TOP QID PRN #1 tube 09/22/19 [Rx] Oxyquinoline/Emollient [Bag [place] Oint] 1 oz TOP ASDIRECTED PRN #1 canister 09/22 [Rx] Polyethylene Glycol 3350 [MiraLAX] 17 gm PO DAILY #30 packet 09/22/19 [Rx] traMADol [Ultram] 50 mg PO Q6H PRN #60 tablet 09/22/19 [Rx] Forms: ED Department Discharge Referrals: Daniel Lopes MD [Primary Care Provider] - - Discharge Summary/Plan Comment DC Time >30 min.: Yes Discharge Summary/Plan Comment: Discharge to [facility] Time for evaluation 10 minutes Time for orders 15 minutes Time for documentation 10 minutes - General Info Date of Service: 09/24/19 Admission Dx/Problem (Free Text: Failure to Thrive Weakness Right Knee Pain Functional Status: Reports: Pain Controlled, Tolerating Diet. Denies: Ambulating - Review of Systems General: Reports: Weakness, Fatigue, Malaise HEENT: Reports: No Symptoms Pulmonary: Denies: Shortness of Breath, Cough Cardiovascular: Reports: Edema. Denies: Chest Pain, Lightheadedness Gastrointestinal: Denies: Abdominal Pain, Nausea, Vomiting Genitourinary: Reports: Incontinence Musculoskeletal: Reports: Leg Pain, Joint Pain Skin: Reports: Other (redness to legs) Neurological: Reports: Weakness - Patient Data Vitals - Most Recent: Last Vital Signs Temp 97.5 F 09/22/19 08:00 Pulse 80 09/22/19 08:00 Resp 16 09/22/19 08:00 BP 112/51 L 09/22/19 00:00 Pulse Ox 95 09/22/19 08:00 Weight - Most Recent: 277 lb Med Orders - Current: Current Medications Discontinued Medications Albuterol (Ventolin Hfa) 0 gm INH Q4H PRN PRN Reason: Respiratory Depression Albuterol/Ipratropium (Duoneb 3.0-0.5 Mg/3 Ml) 3 ml NEB TIDRT PRN PRN Reason: Dyspnea Last Admin: 09/22/19 07:28 Dose: 3 ml Bumetanide (Bumex) 1 mg PO DAILY [facility] Last Admin: 09/22/19 07:27 Dose: 1 mg Calamine/Phenol (Calmoseptine) Confirm Administered Dose 113 gm TOP .STK-MED ONE Stop: 09/17/19 17:32 Last Admin: 09/17/19 17:55 Dose: Not Given Calamine/Phenol (Calmoseptine) 1 gm TOP QID PRN PRN Reason: Wound Care Cephalexin (Keflex) 500 mg PO TID [facility] Last Admin: 09/22/19 07:27 Dose: 500 mg Enoxaparin Sodium (Lovenox) 40 mg SUBCUT Q24H [facility] Last Admin: 09/21/19 13:43 Dose: 40 mg Fentanyl (Sublimaze) 25 mcg IVPUSH Q4H PRN PRN Reason: Pain Last Admin: 09/18/19 13:26 Dose: 25 mcg Magnesium Hydroxide (Milk Of Magnesia) 30 ml PO Q12H PRN PRN Reason: Constipation Ondansetron HCl (Zofran Odt) 4 mg PO Q4H PRN PRN Reason: nausea, able to take PO Ondansetron HCl (Zofran) 4 mg IV Q4H PRN PRN Reason: Nausea/Vomiting Oxyquinoline Sulfate (Bag [place] Oint) 1 oz TOP ASDIRECTED PRN PRN Reason: Wound Care Last Admin: 09/18/19 20:46 Dose: 1 applic Polyethylene Glycol (Miralax) 17 gm PO DAILY [facility] Last Admin: 09/22/19 07:27 Dose: 17 gm Sodium Chloride (Saline Flush) 10 ml FLUSH ASDIRECTED PRN PRN Reason: Keep Vein Open Tramadol HCl (Ultram) 50 mg PO Q6H PRN PRN Reason: Pain Last Admin: 09/22/19 03:28 Dose: 50 mg Tuberculin PPD (Aplisol) 5 unit IDERM ONETIME ONE Stop: 09/21/19 14:04 Last Admin: 09/21/19 15:44 Dose: 5 unit Vitamin B Complex (Vitamin B Complex) 1 each PO DAILY [facility] Last Admin: 09/22/19 07:27 Dose: 1 each - Exam General: Reports: Alert, Oriented HEENT: Reports: Mucous Membr. Moist/[place] Neck: Reports: Supple Lungs: Reports: Clear to Auscultation, Normal Respiratory Effort Cardiovascular: Reports: Regular Rate, Regular Rhythm GI/Abdominal Exam: Normal Bowel Sounds, Soft, Non-Tender Extremities: Pedal Edema (1+ edema in legs, venous stasis changes. Has redness to folds, moisture noted. ) Wound/Incisions: Reports: Erythema Neurological: Reports: No New Focal Deficit
== END 2019-09-22 11:10 | DRG 641 ==
LOC: CC.ED 09:04 → CC.MS 10:33 → CC.ED 10:33 → UNDOADMIN 10:33 → CC.MS 11:11
PROVIDERS: ADMIT Physician Assistant Medical; ATTEND Family Medicine
DX: R62.7 Adult failure to thrive (principal); Z68.42 Body mass index [BMI] 45.0-49.9, adult; M25.561 Pain in right knee; R53.1 Weakness; G89.29 Other chronic pain; S90.411A Abrasion, right great toe, initial encounter; E66.9 Obesity, unspecified; I11.0 Hypertensive heart disease with heart failure; Z91.19 Patient's noncompliance with other medical treatment and regimen; I50.9 Heart failure, unspecified; J45.909 Unspecified asthma, uncomplicated; M19.90 Unspecified osteoarthritis, unspecified site; R10.9 Unspecified abdominal pain; Z79.899 Other long term (current) drug therapy; Z88.1 Allergy status to other antibiotic agents; M79.604 Pain in right leg; M25.551 Pain in right hip; Z88.0 Allergy status to penicillin; L53.9 Erythematous condition, unspecified; R60.9 Edema, unspecified; Z88.2 Allergy status to sulfonamides; Z88.8 Allergy status to other drugs, medicaments and biological substances; W19.XXXA Unspecified fall, initial encounter; Y92.009 Unspecified place in unspecified non-institutional (private) residence as the place of occurrence of the external cause
CPT/HCPCS: 36415; 73560-RT; 80048; 81001; 85025; 86580; 94640; 97110-GP; 97161-GP; 99284-25; A9270-GY; J1650; J3010; J7620-GY

== ENCOUNTER 2021-06-24 11:08 | Emergency (ER) | payer MEDICARE, MEDICAID ==
--- NOTE | 2021-06-24 11:39 | EDM.PDOC ---
ED HPI GENERAL MEDICAL PROBLEM - General Chief Complaint: General Stated Complaint: Fall Time Seen by Provider: 06/24/21 11:09 Source of Information: Reports: Patient History Limitations: Reports: No Limitations - History of Present Illness INITIAL COMMENTS - FREE TEXT/NARRATIVE: This patient is an 81 year old female that presents to the ER. Patient arrives via private vehicle. Patient in wheelchair. Patient reports that yesterday she was here at clinic and her wheelchair folded inward and she fell to one side. Patient has low mechanism fall. Patient reports that she has been able to have same baseline mobility as before, prior to the fall. Which she reports is wheelchair, transfer with lot of assistance, and a lift at home. She reports she lives at home with who helps her and a lady comes in once a week to help her. Patient reports lower back pain, right ankle pain, rght hip pain new from fall. She reports many other pain complaints chronic not related to the fall. Patient denies hitting her head, loc, n, v, vision changes. She is alert and oriented. Onset Date: 06/23/21 Location: Reports: Back, Lower Extremity, Right Severity: Moderate Improves with: Reports: Immobilization Worsens with: Reports: Movement Associated Symptoms: Reports: No Other Symptoms hips Pain Score (Numeric/FACES): 8 - Related Data Allergies Allergy/AdvReac Type Severity Reaction Status Date / Time allopurinol Allergy Muscle Verified 06/24/21 11:11 Weakness azithromycin [From Zithromax] Allergy Nausea Verified 06/24/21 11:11 ciprofloxacin [From Cipro] Allergy Headache Verified 06/24/21 11:11 doxycycline Allergy Shortness Verified 06/24/21 11:11 of Breath guaifenesin Allergy Itching Verified 06/24/21 11:11 metolazone Allergy Hives Verified 06/24/21 11:11 Penicillins Allergy Cannot Verified 06/24/21 11:11 Remember prednisone Allergy Hives Verified 06/24/21 11:11 solifenacin [From Vesicare] Allergy Rash Verified 06/24/21 11:11 spironolactone Allergy Tachycardia Verified 06/24/21 11:11 [From Aldactone] Sulfa (Sulfonamide Allergy Hives Verified 06/24/21 11:11 Antibiotics) tolterodine [From Detrol] Allergy Cannot Verified 06/24/21 11:11 Remember Home Meds: Home Meds Albuterol [Ventolin HFA] 1 puff .XX Q4H PRN 09/17/19 [History] Albuterol/Ipratropium [DuoNeb 3.0-0.5 MG/3 ML] 1 ampule INH TID 09/17/19 [History] Aspirin 325 mg PO DAILY 09/17/19 [History] Budesonide [Pulmicort] 1 ampule INH BID 09/17/19 [History] Bumetanide 1 mg PO DAILY 09/17/19 [History] Cyanocobalamin/Folic Acid [Vitamin U88-Fanzk Acid] 1 each PO DAILY 09/17/19 [History] Potassium 99 mg PO DAILY 09/17/19 [History] Vitamin E (Dl,Tocopheryl Acet) [Vitamin E] 1,000 unit PO DAILY 09/17/19 [History] polyethylene glycoL 3350 [MiraLAX] 17 gm PO DAILY PRN 09/17/19 [History] Menthol/Zinc Oxide [Calmoseptine] 1 gm TOP QID PRN #1 tube 09/22/19 [Rx] Oxyquinoline/Emollient [Bag [place] Oint] 1 oz TOP ASDIRECTED PRN #1 canister 09/22/19 [Rx] polyethylene glycoL 3350 [MiraLAX] 17 gm PO DAILY #30 packet 09/22/19 [Rx] traMADol [Ultram] 50 mg PO Q6H PRN #60 tablet 09/22/19 [Rx] cefUROXime axetiL [Cefuroxime] 500 mg PO BID 06/24/21 [History] Past Medical History Cardiovascular History: Reports: Heart Failure, Hypertension Respiratory History: Reports: Asthma Musculoskeletal History: Reports: Arthritis, Other (See Below) Other Musculoskeletal History: chronic knee and hip pain Social & Family History - Family History Family Medical History: No Pertinent Family History - Tobacco Use Tobacco Use Status *Q: Never Tobacco User Second Hand Smoke Exposure: No - Caffeine Use Caffeine Use: Reports: None - Recreational Drug Use Recreational Drug Use: No ED ROS GENERAL - Review of Systems Review Of Systems: See Below Constitutional: Reports: No Symptoms HEENT: Reports: No Symptoms Respiratory: Reports: No Symptoms Cardiovascular: Reports: No Symptoms Endocrine: Reports: No Symptoms GI/Abdominal: Reports: No Symptoms : Reports: No Symptoms Musculoskeletal: Reports: Back Pain (lower back pain), Joint Pain (right anle pain. Right hip pain) Skin: Reports: Wound (posterior right leg ulcers), Other (BLE chronic leg swelling) Neurological: Reports: No Symptoms Psychiatric: Reports: No Symptoms Hematologic/Lymphatic: Reports: No Symptoms Immunologic: Reports: No Symptoms ED EXAM, GENERAL - Physical Exam Exam: See Below Exam Limited By: No Limitations General Appearance: Alert, WD/WN, No Apparent Distress, Obese (makes exam difficult, landmarks difficult to identify.) Eye Exam: Bilateral Eye: Normal Inspection, PERRL Nose: Normal Inspection Throat/Mouth: Normal Inspection, Normal Lips, Normal Teeth, Normal Gums, Normal Oropharynx, Normal Voice, No Airway Compromise Head: Atraumatic, Normocephalic Neck: Normal Inspection, Supple, Non-Tender, Full Range of Motion Respiratory/Chest: No Respiratory Distress, Lungs Clear, Normal Breath Sounds, No Accessory Muscle Use, Chest Non-Tender Cardiovascular: Normal Peripheral Pulses, Regular Rate, Rhythm, No JVD, No Murmur, No Rub, Other (BLE edema. Chronic lymphedema.) Peripheral Pulses: 2+: Radial (L), Radial (R) GI/Abdominal: Soft, Non-Tender, Hernia, Other (Obesity, unable to identify landmarks) Back Exam: Normal Inspection, Paraspinal Tenderness (lumbar distal). No: CVA Tenderness (L), CVA Tenderness (R), Vertebral Tenderness (but, difficult to palpate due to patient obesity) Extremities: Other (BLE lymphedema, leathery, weeping. Chronic. Not cellulitic. ) Neurological: Alert, Oriented, Normal Cognition, No Motor/Sensory Deficits (mobility difficulty due to obesity, not neurological) Psychiatric: Normal Affect, Normal Mood Skin Exam: Warm, Dry, Wound/Incision (ulcers right posterior thigh. Chronic. ) Course - Vital Signs Last Recorded V/S: Last Vital Signs Temp 97.6 F 06/24/21 11:08 Pulse 88 06/24/21 11:08 Resp 16 06/24/21 11:08 BP 134/66 06/24/21 11:08 Pulse Ox 95 06/24/21 11:08 - Orders/Labs/Meds Orders: Active Orders 24 hr Category Date Time Status Ankle Min 3V Rt [CR] Stat Exams 06/24/21 11:31 Taken Pelvis wo Cont [CT] Routine Exams 06/24/21 Taken - Radiology Interpretation Free Text/Narrative:: Right ankle xray: no fracture. there is swelling CT Pelvis: old fracture right hip. No new fracture. Air subcutaneous abdomen usually seen with medication injection. CT Results Date: 06/24/21 CT Results Time: 13:07 - Re-Assessments/Exams Free Text/Narrative Re-Assessment/Exam: 06/24/21 11:39 Discussed with if he feels comfortable taking care of her at home. He reports he does and they do fine. The patient reports she does fine at home. She reports she east meals, has someone to prepare them, she is able to bathe. She states "I am not going to a [facility]." 06/24/21 11:46 During exam pedal pulses are unobtainable, she has chronic need for vascular surgery, but due to weight can not safely be done, per patient. Her BLE are neurovascular intact, cap refill < 2 sec, pink. Do not appear dusky or arterial occluded. 06/24/21 12:00 Plain films were ordered, but after further discussion with patient service technician pst, due to patient body habitus and limitations of the exam, will ct for better imaging of the hip/pelvis. 06/24/21 13:56 Patient at bedside, discussed patient mobility issues due to obesity. He reports they do fine, she and he refuse [facility]. Will discharge home. This was a mechanical fall yesterday. Patient awake, alert, and oriented. Departure - Departure Time of Disposition: 13:40 Disposition: Home, Self-Care 01 Condition: Poor (due to patient body habitus, [facility] was discussed with this patient, but she has refused and is alert and oriented. ) Clinical Impression: Fall Qualifiers: Encounter type: initial encounter Qualified Code(s): W19.XXXA - Unspecified fall, initial encounter Contusion, hip Qualifiers: Encounter type: initial encounter Laterality: right Qualified Code(s): S70.01XA - Contusion of right hip, initial encounter Ankle sprain Qualifiers: Encounter type: initial encounter Involved ligament of ankle: other ligament Laterality: right Qualified Code(s): S93.491A - Sprain of other ligament of right ankle, initial encounter - Discharge Information *PRESCRIPTION DRUG MONITORING PROGRAM REVIEWED*: Not Applicable *COPY OF PRESCRIPTION DRUG MONITORING REPORT IN PATIENT FAMILIA: Not Applicable Instructions: Ankle Sprain, [id number], Contusion, [id number] Referrals: PCP,None [Primary Care Provider] - Forms: ED Department Discharge Additional Instructions: Followup with your primary care provider Return to the ER for worsening of condition or any emergent concerns Rest Sepsis Event Note (ED) - Evaluation Sepsis Screening Result: No Definite Risk - Focused Exam Vital Signs: Vital Signs Temp Pulse Resp BP Pulse Ox 06/24/21 11:08 97.6 F 88 16 134/66 95 - My Orders Last 24 Hours: My Active Orders 06/24/21 Pelvis wo Cont [CT] Routine 06/24/21 11:31 Ankle Min 3V Rt [CR] Stat - Assessment/Plan Last 24 Hours: My Active Orders 06/24/21 Pelvis wo Cont [CT] Routine 06/24/21 11:31 Ankle Min 3V Rt [CR] Stat Plan: PLEASE SEE RN NOTE FOR PFSH
== END 2021-06-24 14:14 | disposition home or self-care (01) ==
LOC: CC.ED 11:08
DX: S93.491A Sprain of other ligament of right ankle, initial encounter (principal); S70.01XA Contusion of right hip, initial encounter; L97.119 Non-pressure chronic ulcer of right thigh with unspecified severity; I11.0 Hypertensive heart disease with heart failure; I50.9 Heart failure, unspecified; J45.909 Unspecified asthma, uncomplicated; M19.90 Unspecified osteoarthritis, unspecified site; E66.9 Obesity, unspecified; Z68.43 Body mass index [BMI] 50.0-59.9, adult; Z88.8 Allergy status to other drugs, medicaments and biological substances; Z88.1 Allergy status to other antibiotic agents; Z88.0 Allergy status to penicillin; Z88.2 Allergy status to sulfonamides
CPT/HCPCS: 72192; 73610-RT; 99284; 99284-25